=== PATIENT | male | born 1970 | race African-American/Black ===

== ENCOUNTER 2025-02-06 11:10 | Emergency (ER) | payer MEDICAID ==
[~2025-02-06] VITALS: Ht 167.6 cm; Wt 78.0 kg
[2025-02-06 11:32] VITALS: TEMP 36.7; O2SAT 99
[2025-02-06] MEDS ORDERED: CLIN-194 MT (11:50)
[2025-02-06] MEDS ORDERED: CELE100C MT (11:50)
[2025-02-06] MEDS: CLINDAMYCIN HCL 150MG CAPSULE PO STA (12:06)
[2025-02-06 12:12] VITALS: BP 165/105; PULSE 100; RESP 18; O2SAT 100
== END 2025-02-06 12:13 | disposition home or self-care (01) ==
LOC: ER 11:10
DX: K04.7 Periapical abscess without sinus (principal); Z98.890 Other specified postprocedural states
CPT/HCPCS: 99283

== ENCOUNTER 2025-03-03 11:13 | Emergency (ER) | payer MEDICAID ==
[~2025-03-03] VITALS: Ht 167.6 cm; Wt 77.0 kg
[~2025-03-03 11:13] MED LIST: CELE100C MT; CLIN-194 MT
[2025-03-03 11:34] VITALS: O2SAT 100
[2025-03-03] MEDS ORDERED: NAPR220C61 MT (12:57)
[2025-03-03] MEDS: IBUPROFEN 600MG TABLET PO SCH (13:12)
[2025-03-03 13:14] VITALS: BP 165/86; PULSE 77; RESP 16; TEMP 36.7; O2SAT 100
== END 2025-03-03 13:21 | disposition home or self-care (01) ==
LOC: ER 11:13
DX: S69.92XA Unspecified injury of left wrist, hand and finger(s), initial encounter (principal); G89.11 Acute pain due to trauma; Z79.1 Long term (current) use of non-steroidal anti-inflammatories (NSAID); Z98.890 Other specified postprocedural states; Z79.899 Other long term (current) drug therapy; W01.0XXA Fall on same level from slipping, tripping and stumbling without subsequent striking against object, initial encounter; Y93.89 Activity, other specified; Y92.89 Other specified places as the place of occurrence of the external cause; Y99.0 Civilian activity done for income or pay
CPT/HCPCS: 29130; 73110; 73130; 99284